=== PATIENT | male | born 1990 | race Caucasian/White ===

== ENCOUNTER 2021-11-26 17:44 | Emergency (ER) | payer OTHER, SELFPAY ==
--- NOTE | ~2021-11-26 | XR_ITS ---
XR foot RT 2V DATE: 11/26/2021 19:35 INDICATION: Lateral foot pain TECHNIQUE: AP and lateral views COMPARISON: None FINDINGS: Mild posterior calcaneal enthesopathy. No fracture or dislocation, periosteal reaction or destruction is detected. IMPRESSION: Mild posterior calcaneal enthesopathy Reviewed, dictated and finalized at location A. [facility]
[2021-11-26 17:49] VITALS: BP 185/93; PULSE 103; RESP 18; TEMP 36.2; O2SAT 100
--- NOTE | 2021-11-26 18:43 | PC.NURSE ---
pt reports right leg pain x few days. States he was seen at a [facility] last week and was told his xray was negative and was given a boot. states he attempted to be seen at [facility] and [facility] but they had a long wait time. Reports pain and increased swelling to extremity. PMS intact
--- NOTE | 2021-11-26 19:33 | ED.EXTPRO ---
HPI - Extremity Problem General Chief complaint: Extremity Problem,Nontraumatic Stated complaint: Right Foot Pain Time Seen by Provider: 11/26/21 18:58 Source: patient History of Present Illness HPI Narrative: Patient presents with foot pain. Reports he was seen approximate 1 week ago for similar had x-rays which were negative but he continues pain 0 on a repeat evaluation. Patient denies any trauma to the area. He notes erythema warmth and tenderness on the top of his foot. Pain is achy, constant, worse with walking, no radiation. Denies any focal numbness or weakness. Related Data Allergies Allergy/AdvReac Type Severity Reaction Status Date / Time No Known Allergies Allergy Unverified 07/03/14 23:07 Review of Systems Review of Systems: CONSTITUTIONAL: Denies fever, chills, or sweats. EYES: Denies visual changes, redness, or discharge. ENT: Denies rhinorrhea, congestion, sore throat, or otalgia. CARDIOVASCULAR: Denies chest pain, palpitations, or edema. RESPIRATORY: Denies cough or dyspnea. GASTROINTESTINAL: Denies abdominal pain, nausea, vomiting, or diarrhea. GENITOURINARY: Denies dysuria or hematuria. SKIN: Denies rash or itching. MUSCULOSKELETAL: Denies back pain, joint pain, or myalgia. NEUROLOGIC: Denies headache, numbness, dizziness, or weakness. PSYCHIATRIC: Denies anxiety or depression. All systems reviewed & are unremarkable except as noted in HPI and below PMFSH Past Medical History Medical History (Updated 11/27/21 @ 00:00 by Elena Baker) Hypertension Social History Social History (Updated 11/26/21 @ 19:40 by Juanjo Melgoza MD) Substance use: never Exam Narrative: GENERAL: Well-appearing, well-nourished, and in no acute distress. HEAD: Normocephalic, atraumatic. EYES: PERRLA and EOMI. ENT: Nares clear, no rhinorrhea or epistaxis. Mucous membranes moist. NECK: Supple. No masses. No JVD EXTREMITIES: There is erythema warmth to the dorsal distal aspect of the right foot with slight tenderness palpation no open or draining wounds no focal areas of fluctuance no focal bony tenderness. No calf tenderness no proximal edema SKIN: Warm, dry, no rash. NEURO: No focal deficits. Alert and oriented x3. PSYCH: Normal mood and affect. Course Reevaluation(s) Reevaluation #1: Patient resting comfortably results and plan reviewed with patient. Patient comfortable outpatient plan. Date: 11/26/21 Time: 20:10 Vital Signs Vital signs: Vital Signs Temperature 36.2 C L 11/26/21 17:49 Pulse Rate 103 H 11/26/21 17:49 Respiratory Rate 18 11/26/21 17:49 Blood Pressure 185/93 H 11/26/21 17:49 Pulse Oximetry 100 11/26/21 17:49 Temperature 36.2 C L 11/26/21 17:49 Pulse Rate 103 H 11/26/21 17:49 Respiratory Rate 18 11/26/21 20:36 Blood Pressure 185/93 H 11/26/21 17:49 Pulse Oximetry 98 11/26/21 20:36 MDM - Extremity (Nontraumatic) MDM Narrative Medical decision making narrative: H&P as above, vss, pt looks clinically well, exam red swollen warm foot, imaging without acute process, additional labs/img considered, symptomatic relief available as needed, on reevaluation pt continues to looks clinically well. Suspect cellulitis, dns abscess, sepsis, major neurovascular compromise, fracture, dislocation, necrotizing soft tissue infection. plan to tx/monitor as op w/ pcm f/u findings/plan discussed with pt, pt agree/comfortable with plan, return precautions given Imaging Data Radiologist's impression: Impressions Foot X-Ray 11/26/21 19:41 IMPRESSION: Mild posterior calcaneal enthesopathy Discharge Plan Discharge Clinical Impression: Cellulitis Patient Disposition: Home, Self-Care Condition: Improved Instructions: Antibiotic Form, Cellulitis (ED) Additional Instructions: Please return if your symptoms worsen or fail to improve. If you develop a fever, can not eat/drink anything or if you have any other concerns. Prescriptions: New cephalex
[2021-11-26 20:36] VITALS: RESP 18; O2SAT 98
== END 2021-11-26 20:37 | disposition home or self-care (01) ==
PROVIDERS: Emergency Provider Emergency Medicine
DX: L03.115 Cellulitis of right lower limb (principal); I10 Essential (primary) hypertension
CPT/HCPCS: 73620; 99283

== ENCOUNTER 2022-12-06 13:30 | Emergency (ER) | payer OTHER, SELFPAY ==
[2022-12-06 13:40] VITALS: BP 138/95; PULSE 110; RESP 16; TEMP 37.2; O2SAT 99
--- NOTE | 2022-12-06 13:40 | ED.LOWEXIN ---
HPI - Extremity Injury (Lower) General Chief Complaint: Extremity Injury, Lower Stated Complaint: right foot pain Time Seen by Provider: 12/06/22 13:40 Source: patient Mode of arrival: ambulatory Limitations: no limitations History of Present Illness HPI Narrative: 32 yo M with hx of HIV presents with c/o pain to R foot since this AM. Reports mild redness and swelling. States last time this happened he had cellulitis. Denies injury. All systems reviewed and negative except as noted above. Related Data Home Medications Medication Instructions Recorded Confirmed emtricitabine 200 mg-tenofovir tablet 12/06/22 disoproxil fumarate 300 mg tablet ergocalciferol (vitamin D2) 1,250 12/06/22 mcg (50,000 unit) capsule hydrochlorothiazide 25 mg tablet mg 12/06/22 Allergies Allergy/AdvReac Type Severity Reaction Status Date / Time No Known Allergies Allergy Unverified 12/06/22 13:51 Review of Systems Review of Systems: CONSTITUTIONAL: Denies fever, chills, or sweats. EYES: Denies visual changes, redness, or discharge. ENT: Denies rhinorrhea, congestion, sore throat, or otalgia. CARDIOVASCULAR: Denies chest pain, palpitations, or edema. RESPIRATORY: Denies cough or dyspnea. GASTROINTESTINAL: Denies abdominal pain, nausea, vomiting, or diarrhea. GENITOURINARY: Denies dysuria or hematuria. SKIN: Reports pain and redness to right foot. MUSCULOSKELETAL: Denies back pain, joint pain, or myalgia. NEUROLOGIC: Denies headache, numbness, or weakness. PSYCHIATRIC: Denies anxiety or depression. All other systems reviewed are negative, except as documented in HPI. PMFSH Past Medical History Medical History (Updated 12/06/22 @ 13:59 by Leeann Bradshaw NP) Hypertension Social History Social History (Updated 11/26/21 @ 19:40 by Juanjo MelgozaMD) Substance use: never Comments At time of signature, agree with nursing past medical, surgical, social and family history. There is no relevant family history pertinent to the presenting complaint. Exam Narrative: GENERAL: This is a well-nourished, well-developed patient, in no apparent distress. HEAD: normocephalic, atraumatic. EYES: PERRL. Sclera clear/white. Vision is grossly intact. EARS: External ears normal NOSE: External nose normal NECK: Neck supple, non-tender without lymphadenopathy, masses or thyromegaly. CARDIOVASCULAR: Regular rate and rhythm without murmurs, gallops, or rubs. RESPIRATORY: Clear to auscultation. Breath sounds equal bilaterally. No wheezes, rales, or rhonchi. SKIN: warm, Dry, intact with no suspicious lesions or rash, good texture and turgor. NEURO: awake, alert, and oriented to person, place and time. There were no obvious focal neurologic abnormalities. EXTREMITIES: Mild eye redness, warmth noted to dorsal aspect right foot. Tender on palpation. Course Course Level of Care: Express Care Visit Vital Signs Vital signs: Vital Signs Temperature 37.2 C 12/06/22 13:40 Pulse Rate 110 H 12/06/22 13:40 Respiratory Rate 16 12/06/22 13:40 Blood Pressure 138/95 H 12/06/22 13:40 Pulse Oximetry 99 12/06/22 13:40 Oxygen Delivery Room Air 12/06/22 13:40 Temperature 37.2 C 12/06/22 13:51 Pulse Rate 110 H 12/06/22 13:51 Respiratory Rate 16 12/06/22 13:51 Blood Pressure 138/95 H 12/06/22 13:51 Pulse Oximetry 99 12/06/22 13:51 Oxygen Delivery Room Air 12/06/22 13:51 Reviewed MDM - Extremity Injury (Lower) MDM Narrative Medical decision making narrative: Patient is aware of diagnosis, understands and agrees to treatment plan. Anticipatory guidance given. Patient agrees to follow-up as directed and is aware of reasons to seek care at the emergency department. Portions of this record may have been created with voice recognition software Discharge Plan Discharge Clinical Impression: Cellulitis of foot, right Patient Disposition: Home, Self-Care Condition: Stable
[2022-12-06 13:51] VITALS: BP 138/95; PULSE 110; RESP 16; TEMP 37.2; O2SAT 99
== END 2022-12-06 14:08 | disposition home or self-care (01) ==
PROVIDERS: Emergency Provider Nurse Practitioner Family
DX: L03.115 Cellulitis of right lower limb (principal); I10 Essential (primary) hypertension
CPT/HCPCS: 99213; G0463